=== PATIENT | female | born 1985 | race Caucasian/White ===

== ENCOUNTER → 2024-05-07 09:34 | Outpatient (REF) | payer BC, SELFPAY | LOC: RCS 09:34 | PROVIDERS: ATTENDING PHYSICIAN Internal Medicine Cardiovascular Disease; FAMILY PHYSICIAN Family Medicine | DX: R07.89 Other chest pain (principal) | CPT/HCPCS: 93017 ==

== ENCOUNTER → 2024-05-15 13:41 | Outpatient (REF) | payer BC, SELFPAY | LOC: RCS 13:41 | PROVIDERS: ATTENDING PHYSICIAN Internal Medicine Cardiovascular Disease; FAMILY PHYSICIAN Family Medicine | DX: R07.89 Other chest pain (principal) | CPT/HCPCS: 93306 ==